=== PATIENT | male | born 1995 | race Caucasian/White ===

== ENCOUNTER 2023-05-02 01:22 | Emergency (ER) | payer MEDICAID ==
[~2023-05-02] VITALS: Ht 182.9 cm; Wt 100.0 kg
[2023-05-02] MEDS ORDERED: ACETAMINOPHEN 325MG TABLET PO ONE (01:30)
[2023-05-02 01:31] VITALS: BP 135/81; PULSE 128; RESP 18; TEMP 98.4; O2SAT 96
== END 2023-05-02 04:48 | disposition home or self-care (01) ==
LOC: ER 01:42
DX: S80.212A Abrasion, left knee, initial encounter (principal); X58.XXXA Exposure to other specified factors, initial encounter; Y93.89 Activity, other specified; Y92.89 Other specified places as the place of occurrence of the external cause; Y99.8 Other external cause status
CPT/HCPCS: 73560; 99283

== ENCOUNTER 2024-05-24 20:56 | Emergency (ER) | payer MEDICAID ==
[~2024-05-24] VITALS: Ht 177.8 cm; Wt 95.0 kg
[2024-05-24 21:24] VITALS: TEMP 97.8; O2SAT 99
[2024-05-24 22:10] LABS: BASOPHILS % 0.8 % (0.0-2.0); EOSINOPHILS % 3.1 % (0.0-5.0); HEMATOCRIT. 45.8 % (42.0-52.0); HEMOGLOBIN. 15.9 g/dL (14.0-18.0); LYMPHOCYTES % 32.5 % (20.0-50.0); MEAN CORPUSCULAR HEMOGLOBIN 31.2 pg (28.0-32.0); MEAN CORPUSCULAR HGB CONC 34.6 g/dL (31.0-37.0); MEAN CORPUSCULAR VOLUME 90.1 fL (80.0-94.0); MEAN PLATELET VOLUME 7.8 fl (7.4-10.4); MONOCYTES % 5.1 % (2.0-8.0); NEUTROPHILS % 58.5 % (40.0-76.0); PLATELET 362 x1000/uL (130-400); RED BLOOD CELL COUNT 5.09 mill/uL (4.7-6.1); WHITE BLOOD COUNT 12.3 x1000/uL (4.5-11.0)
[2024-05-24 22:21] LABS: CHLORIDE 99 mEq/L (98-107); SODIUM 134 mEq/L (136-145)
[2024-05-24 22:22] LABS: CARBON DIOXIDE 27 mEq/L (21-32)
[2024-05-24 22:27] LABS: CREATININE 0.9 mg/dL (0.6-1.3); GLUCOSE 304 mg/dL (70-105); UREA NITROGEN BLOOD 22 mg/dL (9-23)
[2024-05-24 22:28] LABS: INR 0.9; PROTHROMBIN TIME 10.2 sec (9.6-11.0)
[2024-05-24 22:29] LABS: TROPONIN I HIGH SENSITIVITY 6 ng/L (3.0-53)
[2024-05-24 22:30] LABS: BETA HYDROXYBUTYRATE 0.2 mMol/L (0.0-0.3)
[2024-05-24] MEDS: SODIUM CHLORIDE 0.9% 1,000 ML IV ONE (22:31)
[2024-05-24] MEDS: METFORMIN HCL 500MG TABLET PO NR (23:21)
[2024-05-24] MEDS ORDERED: METF-414 MT (23:41)
[2024-05-25 00:06] VITALS: BP 139/104; PULSE 81; RESP 15; O2SAT 95
== END 2024-05-25 00:21 | disposition home or self-care (01) ==
LOC: ER 20:56
DX: E11.65 Type 2 diabetes mellitus with hyperglycemia (principal); R42 Dizziness and giddiness; J45.909 Unspecified asthma, uncomplicated; I10 Essential (primary) hypertension
CPT/HCPCS: 99284; 96360; 80048; 82010; 82962; 83880; 85025; 85610; 84484; 36415; 93005; J7030

== ENCOUNTER 2024-08-16 18:05 | Emergency (ER) | payer MEDICAID ==
[~2024-08-16] VITALS: Ht 180.3 cm; Wt 96.0 kg
[~2024-08-16 18:05] MED LIST: METF-414 MT
[2024-08-16 18:15] VITALS: BP 126/82; PULSE 90; RESP 16; TEMP 98; O2SAT 99
[2024-08-16] MEDS: HYDROCODONE/ACETAMINOPHEN 5/325MG TABLET PO ONE (20:15)
== END 2024-08-16 22:53 | disposition home or self-care (01) ==
LOC: ER 18:05
DX: S09.90XA Unspecified injury of head, initial encounter (principal); S40.812A Abrasion of left upper arm, initial encounter; S40.811A Abrasion of right upper arm, initial encounter; E11.9 Type 2 diabetes mellitus without complications; I10 Essential (primary) hypertension; J45.909 Unspecified asthma, uncomplicated; W18.39XA Other fall on same level, initial encounter; Y93.89 Activity, other specified; Y92.89 Other specified places as the place of occurrence of the external cause; Y99.8 Other external cause status
CPT/HCPCS: 99284